=== PATIENT | female | born 1970 | race Caucasian/White ===

== ENCOUNTER 2018-07-31 14:14 | Emergency (ER) | payer OTHER, SELFPAY ==
--- NOTE | 2018-07-31 14:18 | PC.NURSE ---
Went out to check on pt prior to triage. No swelling or difficulty breathing stated or observed
[2018-07-31 14:25] VITALS: BP 137/86; PULSE 75; RESP 20; TEMP 36.9; O2SAT 97; BMI 25.0
--- NOTE | 2018-07-31 15:43 | PC.NURSE ---
1530 denies any changes in resp ability or symptoms
--- NOTE | 2018-07-31 16:42 | ED_ITS ---
HPI - Skin/Abscess/Foreign Bdy <Vivi Skeltonmer, CERTIFIED REHABILITATION COUNSELOR-BC - Last Filed: 07/31/18 19:10> General Chief complaint: Skin/Abscess/Foreign Body Stated complaint: bit by wasp on inside of lip Time Seen by Provider: 07/31/18 16:30 Source: patient Mode of arrival: ambulatory Limitations: no limitations History of Present Illness HPI narrative: Patient presents after having a wasp bite the inside of her lip at approximately 2:30 p.m. this afternoon. She has a history of multiple sclerosis and is on immunosuppressants, so her wanted her to come in and be evaluated. She denies any shortness of breath. She denies any swelling or difficulty breathing. She applied ice immediately after the sting. Her states he removed the stinger. The denies any spreading erythema pus drainage or lightheadedness. She has never been stung by a wasp before Related Data Home Medications Medication Instructions Recorded Confirmed citalopram 10 mg PO QDAY #0 06/29/17 07/31/18 ferrous sulfate [Iron (ferrous 325 mg PO QDAY #0 06/29/17 07/31/18 sulfate)] Otc Sinus Medication 1 dose PO PRN PRN 07/31/18 07/31/18 amitriptyline 2 tab PO DAILY 07/31/18 07/31/18 ascorbic acid (vitamin C) [Vitamin 1 tab PO DAILY 07/31/18 07/31/18 C] baclofen 1 tab PO TID 07/31/18 07/31/18 cyanocobalamin (vitamin B-12) 2,000 mcg PO DAILY 07/31/18 07/31/18 [Vitamin B-12] dimethyl fumarate [Tecfidera] 1 cap PO BID 07/31/18 07/31/18 ergocalciferol (vitamin D2) 1 cap PO QWEEK 07/31/18 07/31/18 gabapentin 1 cap PO TID 07/31/18 07/31/18 lisinopril 1 tab PO DAILY 07/31/18 07/31/18 montelukast 1 tab PO DAILY 07/31/18 07/31/18 norgestimate-ethinyl estradiol 1 tab PO DAILY 07/31/18 07/31/18 [Ortho Tri-Cyclen (28)] ranitidine HCl 1 tab PO BID 07/31/18 07/31/18 sumatriptan succinate 1 tab PO PRN PRN 07/31/18 07/31/18 Allergies Allergy/AdvReac Type Severity Reaction Status Date / Time amoxicillin [From Augmentin] Allergy Unknown Unverified 01/23/18 12:20 bupropion Allergy Unknown JITTERS, Unverified 01/23/18 12:20 LOSS OF FOCUS cefaclor Allergy Unknown SWELLING Unverified 01/23/18 12:20 OF ORAL CAVITY STRUCTURE cephalexin Allergy Unknown SWELLING Unverified 01/23/18 12:20 OF ORAL CAVITY STRUCTURE Cephalosporins Allergy Unknown SWELLING Unverified 01/23/18 12:20 OF ORAL CAVITY STRUCTURE clarithromycin Allergy Unknown VOMITING Unverified 01/23/18 12:20 clavulanic acid Allergy Unknown Unverified 01/23/18 12:20 [From Augmentin] hydrocodone Allergy Unknown RASH Unverified 01/23/18 12:20 loratadine [From Claritin-D] Allergy Unknown PRURITUS Unverified 01/23/18 12:20 pseudoephedrine Allergy Unknown PRURITUS Unverified 01/23/18 12:20 [From Claritin-D] Sulfa (Sulfonamide Allergy Unknown SWELLING Unverified 01/23/18 12:20 Antibiotics) OF ORAL CAVITY STRUCTURE Review of Systems <MATT Sanchez - Last Filed: 07/31/18 19:10> Review of Systems GENERAL: Denies chills, fatigue, malaise, fever, sweats. HEENT: Denies sinus pain, ear pain, sore throat, difficulty swallowing, dizziness. RESPIRATORY: see HPI CARDIOVASCULAR: Denies chest pain, palpitations, orthopnea, edema, GASTROINTESTINAL: Denies nausea, vomiting, abdominal pain, diarrhea, constipation, melena. : Denies dysuria, frequency, incontinence, hematuria, urinary retention. MUSCULOSKELETAL: denies weakness, joint pain, or bony pain SKIN: see HPI NEUROLOGIC: Denies weakness, headache, numbness, change in speech, confusion, seizures, incoordination. PSYCHIATRIC: No concerning psychosocial issues. 12 point review of systems is negative except for those stated above Exam <PARVIZ Sanchez - Last Filed: 07/31/18 19:10> Narrative Exam Narrative: GENERAL: This is a well-nourished, well-developed patient, Lying on stretcher no acute distress HEAD: Atraumatic. Normocephalic. No temporal or scalp tenderness. EYES: Pupils equal round and reactive. Extraocular motions intact. No scleral icterus. No injection or drainage. ENT: Nose without bleeding, purulent drainage or septal hematoma. Throat without erythema, tonsillar hypertrophy or exudate. Uvula midline. Airway patent. No oral pharyngeal swelling. NECK: Trachea midline. No JVD or lymphadenopathy. Supple, nontender, no meningeal signs. CARDIOVASCULAR: Regular rate and rhythm without murmurs, gallops, or rubs. RESPIRATORY: Clear to auscultation. Breath sounds equal bilaterally. No wheezes , rales, or rhonchi. no cough on exam. No increased respiratory effort. No retractions or accessory muscle use. GASTROINTESTINAL: Abdomen soft, non-tender, nondistended. No hepato-splenomegaly , or palpable masses. No guarding. EXTREMITIES: No clubbing, cyanosis, or edema. No joint tenderness, effusion, or edema noted. BACK: Nontender without deformity or crepitance. No flank tenderness. NEURO: AOx3. SKIN: No rash or erythema. small stating her location inside of her lower lip and Center. No stinger attached. No spreading erythema or swelling. Initial Vital Signs Initial Vital Signs: Vital Signs Temperature 98.4 F 07/31/18 14:25 Pulse Rate 75 07/31/18 14:25 Respiratory Rate 20 07/31/18 14:25 Blood Pressure 137/86 07/31/18 14:25 Pulse Oximetry 97 07/31/18 14:25 <Melissa Nicholas MD - Last Filed: 07/31/18 21:20> Initial Vital Signs Initial Vital Signs: Vital Signs Temperature 98.4 F 07/31/18 14:25 Pulse Rate 75 07/31/18 14:25 Respiratory Rate 20 07/31/18 14:25 Blood Pressure 137/86 07/31/18 14:25 Pulse Oximetry 97 07/31/18 14:25 Course <MATT Sanchez - Last Filed: 07/31/18 19:10> Vital Signs - 8 hr 07/31/18 14:25 07/31/18 16:57 Temperature 98.4 F Pulse Rate 75 84 Respiratory Rate 20 17 Blood Pressure 137/86 Blood Pressure [Right Arm] 130/78 Pulse Oximetry 97 96 <Melissa Nicholas MD - Last Filed: 07/31/18 21:20> Vital Signs - 8 hr 07/31/18 14:25 07/31/18 16:57 Temperature 98.4 F Pulse Rate 75 84 Respiratory Rate 20 17 Blood Pressure 137/86 Blood Pressure [Right Arm] 130/78 Pulse Oximetry 97 96 MDM - Skin/Abscess/Foreign Bdy <PARVIZ Sanchez - Last Filed: 07/31/18 19:10> MDM Narrative Medical decision making narrative: Patient presents after being stung by a wasp in the inside of her lower lip. She has no respiratory distress or signs of anaphylaxis. She has no large swelling of her lip. She has applied ice. She is hemodynamically stable and Experiencing any respiratory compromise. I discussed at length return precautions for her including signs of infection including erythema, pus or signs of anaphylaxis including shortness of breath or pharyngeal swelling. She had no questions or concerns upon discharge. Discharge Plan Departure Patient Disposition: Home Clinical Impression: Insect sting Discharge Date/Time: 07/31/18 17:12 Interventions: ED Discharge Assessment Last Done: 07/31/18 17:12 Instructions: How to Care for an Insect Bite or Sting, Insect Bites and Stings (Alternative Therapy), DI for Insect Bites and Stings Activity Restrictions/Additional Instructions: Your exam today is stable. Please monitor for pus or spreading redness from the site of her insect sting. Please monitor for shortness of breath and swelling of the lips and face regarding an allergic reaction. Please follow-up with her primary care provider or come back to the emergency department if you have any acute concerns. Prescriptions: No Action ferrous sulfate [Iron (ferrous sulfate)] 325 MG tablet 325 mg PO QDAY Qty: 0 RF: 0 citalopram 10 MG tablet 10 mg PO QDAY Qty: 0 RF: 0 ascorbic acid (vitamin C) [Vitamin C] 1,000 mg Tablet 1 tab PO DAILY RF: 0 sumatriptan succinate 100 mg tablet 1 tab PO PRN PRN (Reason: Migraine Headache) RF: 0 lisinopril 20 mg tablet 1 tab PO DAILY RF: 0 amitriptyline 25 mg tablet 2 tab PO DAILY RF: 0 baclofen 10 mg tablet 1 tab PO TID RF: 0 ranitidine HCl 150 mg tablet 1 tab PO BID RF: 0 gabapentin 300 mg capsule 1 cap PO TID RF: 0 norgestimate-ethinyl estradiol [Ortho Tri-Cyclen (28)] 0.18/0.215/0.25 mg-35 mcg (28) Tablet 1 tab PO DAILY RF: 0 montelukast 10 mg tablet 1 tab PO DAILY RF: 0 cyanocobalamin (vitamin B-12) [Vitamin B-12] 2,000 mcg Tablet Extended Release 2,000 mcg PO DAILY RF: 0 ergocalciferol (vitamin D2) 50,000 unit Capsule 1 cap PO QWEEK RF: 0 dimethyl fumarate [Tecfidera] 240 mg capsule,delayed release(DR/EC) 1 cap PO BID RF: 0 Otc Sinus Medication 1 dose PO PRN PRN (Reason: Sinus Symptoms) RF: 0 Referrals: Terrie Cates MD [Primary Care Provider] -
[2018-07-31 16:57] VITALS: BP 130/78; PULSE 84; RESP 17; O2SAT 96
== END 2018-07-31 17:12 | disposition home or self-care (01) ==
PROVIDERS: Emergency Provider Nurse Practitioner Family; PCP Family Medicine
DX: S00.561A Insect bite (nonvenomous) of lip, initial encounter (principal); W57.XXXA Bitten or stung by nonvenomous insect and other nonvenomous arthropods, initial encounter
CPT/HCPCS: 99282

== ENCOUNTER → 2019-12-17 15:58 | Outpatient (CLI) | payer MEDICARE, OTHER, SELFPAY | PROVIDERS: PCP Family Medicine; Referring Provider Family Medicine; Visit Provider Family Medicine | DX: R01.1 Cardiac murmur, unspecified (principal) ==

== ENCOUNTER → 2019-12-19 16:04 | Outpatient (CLI) | payer MEDICARE, OTHER, SELFPAY ==
--- NOTE | 2019-12-19 16:23 | DI.ECHO.S_ITS ---
Echocardiogram Report + + :Name: ARNOLDO MISHRA Study Date: 12/19/2019 Height: 65 in : :[facility] Weight: 170 lb : : Gender: Female BSA: 1.8 m2 : :: 1970 Age: 49 yrs BP: 142/92 mmHg: :Reason For Study: MURMUR : : Performed By: Richy Kuhn : :Referring: TA SNOW : + + Interpretation Summary The ejection fraction is estimated to be 60-65%. There is no significant valvular heart disease. Procedure: A two-dimensional transthoracic echocardiogram with color flow and Doppler was performed. The study quality was technically adequate. There is no prior echocardiogram noted for this patient. The patient was in normal sinus rhythm during the exam. The patient was tachycardic with a heart rate of 94-112 beats per minute. Left Ventricle: The left ventricle is normal in size. There is normal left ventricular wall thickness. The ejection fraction is estimated to be 60-65%. There are no focal wall motion abnormalities. Right Ventricle: The right ventricle is normal in size and function. Atria: The left atrium is mildly dilated. Right atrial size is normal. The interatrial septum is intact with no evidence for an atrial septal defect. Mitral Valve: The mitral valve is normal in structure and function. There is no mitral regurgitation noted. Aortic Valve: The aortic valve is trileaflet. The aortic valve opens well. No aortic regurgitation is present. Tricuspid Valve: The tricuspid valve is normal in structure and function. No tricuspid regurgitation. Pulmonary artery pressures cannot be estimated because of the lack of a measurable TR jet velocity. Pulmonic Valve: The pulmonic valve is not well visualized. Great Vessels: The aortic root is normal size. The dimensions of the ascending aorta are normal. The pulmonary artery is normal size. The IVC is of normal diameter and collapses greater than 50% with a sniff. This suggests a low right atrial pressure of 3 mm Hg. Pericardium/ Pleura There is no pericardial effusion. There is no pleural effusion. MMode/2D Measurements & Calculations LVIDd: 4.3 cm LVOT diam: 2.0 cm LVIDs: 2.5 cm Ao root diam: 3.2 cm FS: 42.2 % Aortic Jxn: 2.6 cm EPSS: 0.50 cm asc Aorta Diam: 3.4 cm IVSd: 1.1 cm Ao Arch Diam (Prox Trans): 2.2 cm LVPWd: 0.87 cm LV colmenares. diameter/BSA (cm/m^2): 2.4 LV sys. diameter/BSA (cm/m^2): 1.4 LA dimension: 3.1 cm RA long axis: 4.2 cm LA A2 area: 19.5 cm2 RA area: 15.3 cm2 LA A4 area: 23.0 cm2 RA vol: 47.8 ml LA length (vol): 4.9 cm RA : 25.9 ml/m2 LA vol: 77.0 ml IVC diam: 1.3 cm LA vol index: 41.7 ml/m2 Doppler Measurements & Calculations Ao V2 max: 145.6 cm/sec LVOT Max Beni: 104.0 cm/sec Ao V2 mean: 117.6 cm/sec LV V1 max P.3 mmHg Ao max P.5 mmHg LV V1 VTI: 18.5 cm Ao mean P.8 mmHg DANII(I,D): 2.1 cm2 Ao V2 VTI: 27.7 cm DANII(V,D): 2.3 cm2 sev ratio: 0.67 DANII indexed to BSA (cm^2/m^2): 1.2 MV E max beni: 77.0 cm/sec PA V2 max: 133.7 cm/sec MV A max beni: 90.8 cm/sec PA V2 mean: 88.8 cm/sec MV E/A: 0.85 PA mean P.5 mmHg Med Peak E' Beni: 5.8 cm/sec PA pr(Accel): 33.8 mmHg E/E' med: 13.3 Lat Peak E' Beni: 10.7 cm/sec E/E' lat: 7.2 E/e' average: 10.2 MV dec time: 0.16 sec SV(LVOT): 59.0 ml _ Reading Physician:01:56 PM
== END ==
PROVIDERS: PCP Family Medicine; Referring Provider Family Medicine; Visit Provider Family Medicine
DX: R01.1 Cardiac murmur, unspecified (principal)
CPT/HCPCS: 93306

== ENCOUNTER → 2020-08-16 17:18 | Outpatient (CLI) | payer MEDICARE, OTHER, SELFPAY ==
--- NOTE | 2020-08-16 | DI.MRI.S_ITS ---
PROCEDURE: MR KNEE RT WO CON INDICATIONS: Medial right knee pain post twisting injury TECHNIQUE: Noncontrast sagittal PD fast spin echo and T2 fast spin echo with fat saturation, sagittal 3-D FLASH with fat saturation; coronal T1 spin echo and PD fast spin echo with fat saturation, and axial PD fast spin echo with fat saturation through the knee. COMPARISON: None. FINDINGS: Image quality: Excellent. Menisci: Amorphous high signal intensity within the body and posterior horn medial meniscus is present, demonstrating inferior articular surface extension (series 9, image 22), consistent with degenerative tearing. Lateral meniscus is intact. Cruciate ligaments: The anterior and posterior cruciate ligaments appear intact. Medial structures: There is mild T2 signal elevation within the mid and superior aspects of the medial collateral ligament, consistent with partial thickness tearing.. Visualized portions of the pes anserinus tendons appear normal. No abnormal bursal fluid. Lateral structures: The lateral collateral ligament demonstrates mild T2 signal elevation at the femoral origin. The long and short heads of the biceps femoris tendon appear intact. The popliteus tendon appears normal. Iliotibial band appears normal. Anterior structures: The quadriceps and patellar tendons appear intact. Patellar alignment is normal. No femoral trochlear dysplasia or ventral trochlear prominence. No edema in the infrapatellar fat pad. Bones and cartilage: No displaced fracture. There is moderate ill-defined T2 signal elevation within the central and medial aspect of the patella, consistent with contusion, given the history of recent injury. Mild diffuse articular cartilage loss overlies the weight-bearing aspects of the medial femoral condyle and medial tibial plateau. Joint space: There is physiologic knee joint fluid. No Monk's cyst. Normal appearing synovial plicae are incidentally noted. IMPRESSION: 1. Contusion of the patella. 2. Partial thickness medial collateral ligament tear. 3. Partial thickness lateral collateral ligament tear. 4. Medial meniscal tear. Dictated by: Anderson Mtz M.D. on 08/17/2020 at 8:36 Approved by: Anderson Mtz M.D. on 08/17/2020 at 8:39
== END ==
PROVIDERS: PCP Student in an Organized Health Care Education/Training Program; Referring Provider Student in an Organized Health Care Education/Training Program; Visit Provider Student in an Organized Health Care Education/Training Program
DX: M25.561 Pain in right knee (principal); S80.01XA Contusion of right knee, initial encounter; S83.241A Other tear of medial meniscus, current injury, right knee, initial encounter; S83.411A Sprain of medial collateral ligament of right knee, initial encounter; S83.421A Sprain of lateral collateral ligament of right knee, initial encounter; X50.0XXA Overexertion from strenuous movement or load, initial encounter
CPT/HCPCS: 73721

== ENCOUNTER 2021-03-09 15:57 | Emergency (ER) | payer MEDICARE, OTHER, SELFPAY ==
[2021-03-09 16:05] VITALS: BP 119/72; PULSE 112; RESP 16; TEMP 36.9; O2SAT 99
--- NOTE | 2021-03-09 19:21 | ED.SKABFB ---
HPI - Skin/Abscess/Foreign Bdy <Vivi Skeltonmer, CORROSION CONTROL TECHNICIAN-BC - Last Filed: 03/09/21 19:25> General Chief complaint: Skin/Abscess/Foreign Body Stated complaint: RASH ON BACK THINKS POSS SHINGLES Time Seen by Provider: 03/09/21 16:53 Source: patient Mode of arrival: Ambulatory Limitations: no limitations History of Present Illness HPI narrative: The patient is a 50-year-old female current everyday smoker with history of shingles who presents with a chief complaint of recurrence shingles. She states that she was treated for shingles earlier this month, with valacyclovir. She filled this on the of this month. She states she had shingles on the right side of her chest wall. She states her rash and symptoms got better, but over the past few days it has gotten itchy and she is worried about a recurrence. She notes that she went to her primary care provider's again in the placed on hydrocortisone for the itch. She states she thinks she is using too much. She states that she has had multiple episodes of shingles. Related Data Home Medications Medication Instructions Recorded Confirmed citalopram 10 mg PO QDAY #0 06/29/17 07/31/18 ferrous sulfate [Iron (ferrous 325 mg PO QDAY #0 06/29/17 07/31/18 sulfate)] Otc Sinus Medication 1 dose PO PRN PRN 07/31/18 07/31/18 amitriptyline 2 tab PO DAILY 07/31/18 07/31/18 ascorbic acid (vitamin C) [Vitamin 1 tab PO DAILY 07/31/18 07/31/18 C] baclofen 1 tab PO TID 07/31/18 07/31/18 cyanocobalamin (vitamin B-12) 2,000 mcg PO DAILY 07/31/18 07/31/18 [Vitamin B-12] dimethyl fumarate [Tecfidera] 1 cap PO BID 07/31/18 07/31/18 ergocalciferol (vitamin D2) 1 cap PO QWEEK 07/31/18 07/31/18 gabapentin 1 cap PO TID 07/31/18 07/31/18 lisinopril 1 tab PO DAILY 07/31/18 07/31/18 montelukast 1 tab PO DAILY 07/31/18 07/31/18 norgestimate-ethinyl estradiol 1 tab PO DAILY 07/31/18 07/31/18 [Ortho Tri-Cyclen (28)] ranitidine HCl 1 tab PO BID 07/31/18 07/31/18 sumatriptan succinate 1 tab PO PRN PRN 07/31/18 07/31/18 Previous Rx's Medication Instructions Recorded hydroxyzine HCl 50 mg PO BID PRN #14 tab 03/09/21 prednisone 50 mg PO DAILY 5 Days #5 tab 03/09/21 Allergies Allergy/AdvReac Type Severity Reaction Status Date / Time amoxicillin [From Augmentin] Allergy Unknown Verified 03/09/21 18:14 bupropion Allergy Unknown JITTERS, Verified 03/09/21 18:14 LOSS OF FOCUS cefaclor Allergy Unknown SWELLING Verified 03/09/21 18:14 OF ORAL CAVITY STRUCTURE cephalexin Allergy Unknown SWELLING Verified 03/09/21 18:14 OF ORAL CAVITY STRUCTURE Cephalosporins Allergy Unknown SWELLING Verified 03/09/21 18:14 OF ORAL CAVITY STRUCTURE clarithromycin Allergy Unknown VOMITING Verified 03/09/21 18:14 clavulanic acid Allergy Unknown Verified 03/09/21 18:14 [From Augmentin] hydrocodone Allergy Unknown RASH Verified 03/09/21 18:14 loratadine [From Claritin-D] Allergy Unknown PRURITUS Verified 03/09/21 18:14 pseudoephedrine Allergy Unknown PRURITUS Verified 03/09/21 18:14 [From Claritin-D] Sulfa (Sulfonamide Allergy Unknown SWELLING Verified 03/09/21 18:15 Antibiotics) OF ORAL CAVITY STRUCTURE Review of Systems <ANU Sanchez-BC - Last Filed: 03/09/21 19:25> Review of Systems Narrative: GENERAL: Denies chills, fatigue, malaise, fever, sweats. HEENT: Denies sinus pain, ear pain, sore throat, difficulty swallowing, dizziness. RESPIRATORY: Denies dyspnea, cough, wheezing, hemoptysis, sputum. CARDIOVASCULAR: Denies chest pain, palpitations, orthopnea, edema, GASTROINTESTINAL: Denies nausea, vomiting, abdominal pain, diarrhea, constipation, melena. : Denies dysuria, frequency, incontinence, hematuria, urinary retention. MUSCULOSKELETAL: denies weakness, joint pain, or bony pain SKIN: See HPI NEUROLOGIC: Denies weakness, headache, numbness, change in speech, confusion, seizures, incoordination. PSYCHIATRIC: No concerning psychosocial issues. 12 point review of systems is negative except for those stated above Patient History <MATT Sanchez - Last Filed: 03/09/21 19:25> Social History Smoking Status: Current every day smoker Smoking Status: Current every day smoker alcohol intake frequency: holidays/special occasions only Substance Use Type: marijuana Exam <MATT Sanchez - Last Filed: 03/09/21 19:25> Narrative Exam Narrative: GENERAL: This is a well-nourished, well-developed patient, in no acute distress HEAD: Atraumatic. Normocephalic. No temporal or scalp tenderness. EYES: Pupils equal round and reactive. Extraocular motions intact. No scleral icterus. No injection or drainage. ENT: Nose without bleeding, purulent drainage or septal hematoma. Wearing a mask Airway patent. NECK: Trachea midline. No JVD or lymphadenopathy. Supple, nontender, no meningeal signs. CARDIOVASCULAR: Regular rate and rhythm RESPIRATORY: No cough. No increased respiratory effort. No accessory muscle use. EXTREMITIES: No clubbing, cyanosis, or edema. No joint tenderness, effusion, or edema noted. BACK: Nontender without deformity or crepitance. No flank tenderness. NEURO: AOx3. SKIN: Very faint Resolving shingles rash across right side of chest wall at bra line healing vesicles noted. No active crusting. Multiple scratch perez noted especially in posterior Initial Vital Signs Initial Vital Signs: Vital Signs Temperature 98.4 F 03/09/21 16:05 Pulse Rate 112 H 03/09/21 16:05 Respiratory Rate 16 03/09/21 16:05 Blood Pressure 119/72 03/09/21 16:05 Pulse Oximetry 99 03/09/21 16:05 <Serafin Stone DO - Last Filed: 03/10/21 06:57> Initial Vital Signs Initial Vital Signs: Vital Signs Temperature 98.4 F 03/09/21 16:05 Pulse Rate 112 H 03/09/21 16:05 Respiratory Rate 16 03/09/21 16:05 Blood Pressure 119/72 03/09/21 16:05 Pulse Oximetry 99 03/09/21 16:05 Scores <MATT Sanchez - Last Filed: 03/09/21 19:25> GCS Anton coma scale eye opening: Spontaneous [place] coma scale verbal response: Orientated [place] coma scale motor response: Obey commands [place] coma scale total score: 15 Course <Vivi SkeltonMATT babcock - Last Filed: 03/09/21 19:25> Vital Signs Vital signs: Vital Signs - 8 hr 03/09/21 16:05 Temperature 98.4 F Pulse Rate 112 H Respiratory Rate 16 Blood Pressure 119/72 Pulse Oximetry 99 <Serafin Stone DO - Last Filed: 03/10/21 06:57> Vital Signs Vital signs: Vital Signs - 8 hr 03/09/21 16:05 Temperature 98.4 F Pulse Rate 112 H Respiratory Rate 16 Blood Pressure 119/72 Pulse Oximetry 99 MDM - Skin/Abscess/Foreign Bdy <Vivi SkeltonMATT babcock - Last Filed: 03/09/21 19:25> MDM Narrative Medical decision making narrative: The patient is a 50-year-old female who presents with a chief complaint of shingles concerns. Her shingles rash appears to be healing well, though she is definitely very itchy point time. Will place her on a burst of steroids as well as hydroxyzine at night for itch. Discussed at length the fact that she should follow up with primary care provider in the next few days and come back to the ER for acute concerns. Patient states accordance with plan, has no questions or concerns upon discharge. Discussed that hydroxyzine can be sedating, not taking with any other antihistamines and that prednisone can make her hungry, motion with a bowel etcetera Discharge Plan Departure Patient Disposition: Home Clinical Impression: Shingles Qualifiers: Herpes zoster complications: without complications Qualified Code(s): B02.9 - Zoster without complications Instructions: DI for Shingles Activity Restrictions/Additional Instructions: Thank you for trusting us with your care today As discussed, I sent 2 prescriptions to [facility] Please follow-up with primary care provider in the next few days. Please come back to the emergency department for any acute concerns. Please do not combine the hydroxyzine with Benadryl or other antihistamines. Be aware that steroids can make you hungry, emotional etcetera Prescriptions: New hydroxyzine HCl 50 mg tablet 50 mg PO BID PRN (Reason: itching) Qty: 14 RF: 0 prednisone 50 mg tablet 50 mg PO DAILY 5 Days Qty: 5 RF: 0 No Action ferrous sulfate [Iron (ferrous sulfate)] 325 MG tablet 325 mg PO QDAY Qty: 0 RF: 0 citalopram 10 MG tablet 10 mg PO QDAY Qty: 0 RF: 0 ascorbic acid (vitamin C) [Vitamin C] 1,000 mg Tablet 1 tab PO DAILY RF: 0 sumatriptan succinate 100 mg tablet 1 tab PO PRN PRN (Reason: Migraine Headache) RF: 0 lisinopril 20 mg tablet 1 tab PO DAILY RF: 0 amitriptyline 25 mg tablet 2 tab PO DAILY RF: 0 baclofen 10 mg tablet 1 tab PO TID RF: 0 ranitidine HCl 150 mg tablet 1 tab PO BID RF: 0 gabapentin 300 mg capsule 1 cap PO TID RF: 0 norgestimate-ethinyl estradiol [Ortho Tri-Cyclen (28)] 0.18/0.215/0.25 mg-35 mcg (28) Tablet 1 tab PO DAILY RF: 0 montelukast 10 mg tablet 1 tab PO DAILY RF: 0 cyanocobalamin (vitamin B-12) [Vitamin B-12] 2,000 mcg Tablet Extended Release 2,000 mcg PO DAILY RF: 0 ergocalciferol (vitamin D2) 50,000 unit Capsule 1 cap PO QWEEK RF: 0 dimethyl fumarate [Tecfidera] 240 mg capsule,delayed release(DR/EC) 1 cap PO BID RF: 0 Otc Sinus Medication 1 dose PO PRN PRN (Reason: Sinus Symptoms) RF: 0 Referrals: Bubba Leroy DO [Primary Care Provider] - <Serafin Stone DO - Last Filed: 03/10/21 06:57> [facility]: Dr Stone Co-Sign Statement: I was available for consultation during this patient's emergency department visit. This chart is signed by myself for administrative purposes only. I did not have direct contact with this patient during this visit. They were seen independently by the APC.
== END 2021-03-09 18:14 | disposition home or self-care (01) ==
PROVIDERS: Emergency Provider Nurse Practitioner Family; PCP Student in an Organized Health Care Education/Training Program
DX: B02.9 Zoster without complications (principal)
CPT/HCPCS: 99281

== ENCOUNTER 2021-04-10 10:45 | Emergency (ER) | payer MEDICARE, OTHER, SELFPAY ==
[2021-04-10 11:15] VITALS: TEMP 36.9; BMI 29.1
--- NOTE | 2021-04-10 14:11 | DI.RAD.S_ITS ---
PROCEDURE: XR HAND RT MIN 3V INDICATIONS: broken glass, poss fb, reduced ROM 2nd digit TECHNIQUE: 3 views of the hand(s) acquired. COMPARISON: None. FINDINGS: Bones: No fractures or dislocations. Carpal bones are normally aligned. No suspicious bony lesions. Soft tissues: No suspicious soft tissue calcifications. No radiopaque foreign bodies noted. IMPRESSION: No evidence radiopaque foreign body. No evidence acute bony abnormality of the right hand Dictated by: Aryan Hanna M.D. on 04/10/2021 at 13:37 Approved by: Aryan Hanna M.D. on 04/10/2021 at 13:37
[2021-04-10] MEDS: LIDO 1%/SOD BICARB 8.4% (10ML) 10 ML SYRINGE INJ (14:17)
[2021-04-10] MEDS: TET,DIPH,PERTUSS(ACELL),VAC/PF 0.5 ML SYRINGE IM (14:18)
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
--- NOTE | 2021-04-10 16:00 | PC.NURSE ---
Wounds cleaned with CHG and wraped and splinted per MD lemus
== END 2021-04-10 16:00 | disposition home or self-care (01) ==
PROVIDERS: Emergency Provider Emergency Medicine; PCP Student in an Organized Health Care Education/Training Program
DX: S61.411A Laceration without foreign body of right hand, initial encounter (principal); S61.216A Laceration without foreign body of right little finger without damage to nail, initial encounter; W25.XXXA Contact with sharp glass, initial encounter; Z23 Encounter for immunization
CPT/HCPCS: 12001; 73130; 90471; 99283; 99284; 90715